=== PATIENT | female | born 1980 | race Caucasian/White ===

== ENCOUNTER → 2016-08-07 | Outpatient (CLI) | payer OTHER ==
[~2016-08-07] MED LIST: MTR600X PO; OXYC-57 PO; PRENTAB26 PO; TYLUNK PO
== END | disposition home or self-care (01) ==
LOC: C.PAPS 18:15
PROVIDERS: ATTEND Obstetrics & Gynecology
DX: Z12.4 Encounter for screening for malignant neoplasm of cervix (principal)